=== PATIENT | female | born 1955 | race Caucasian/White ===

== ENCOUNTER → 2016-08-21 | Outpatient (CLI) | payer OTHER | LOC: FIMAGING 07:42 | PROVIDERS: ATTEND Nurse Practitioner Adult Health | DX: M25.511 Pain in right shoulder (principal); M75.101 Unspecified rotator cuff tear or rupture of right shoulder, not specified as traumatic; M75.51 Bursitis of right shoulder; M75.21 Bicipital tendinitis, right shoulder; M25.711 Osteophyte, right shoulder ==

== ENCOUNTER → 2017-01-27 | Outpatient (CLI) | payer OTHER | LOC: FIMAGING 16:04 | PROVIDERS: ATTEND Physician Assistant | DX: Z12.31 Encounter for screening mammogram for malignant neoplasm of breast (principal) | CPT/HCPCS: G0202 ==

== ENCOUNTER 2018-07-06 23:22 | Inpatient (IN) | payer OTHER ==
[2018-07-06] MEDS ORDERED: NS 1,000 ML IV ONE (23:44)
[2018-07-06 23:50] LABS: PLATELET COUNT 199 10^3/uL (150-400)
--- NOTE | 2018-07-06 23:51 | EDPHY ---
General Time Seen by Provider: 07/06/18 23:32 Narrative: CLINICAL IMPRESSION: Acute appendicitis ASSESSMENT/PLAN: 63-year-old female presents to the emergency department with 2 days of lower abdominal pain associated with nausea, 1 episode of nonbloody vomiting, no diarrhea, and subjective low-grade fevers. Patient arrives tachycardic, hypertensive, afebrile, nonseptic and nontoxic appearing. She has right greater than left lower abdominal discomfort with guarding but no focal peritoneal findings. Labs consistent with leukocytosis of 13 with left shift, no significant electrolyte imbalance or metabolic disturbance. CT confirms large 2 cm appendicolith with surrounding appendicitis and fat stranding. Results discussed with Dr. Saucedo from general surgery who will see the patient and take her to the OR later on this morning. Patient will be kept NPO. IV Flagyl and Rocephin initiated in the ED. IV analgesics provided and patient is comfortable at this time. Case discussed with Dr. Chapman. Stabilized for transfer to the floor pending surgery. DIFFERENTIAL DX: Abdominal pain includes but not limited to urinary tract infection, pyelonephritis,ovarian torsion, ovarian cyst, uterine fibroids, acute appendicitis, acute diverticulitis, small-bowel obstruction, constipation ED PROCEDURES: See lab and/or imaging results below ED COURSE: 1:25 a.m.: Dr. Mcknight has read CT scan as positive for acute appendicitis with a large appendicolith measuring 2 cm. Results discussed with the patient. She last had yogurt at 6:45 a.m. Yesterday evening. She will be kept NPO. Antibiotics ordered, case discussed with Dr. Saucedo. Patient will be admitted to the floor with plan for OR later this morning. CHIEF COMPLAINT: Abdominal pain nausea and vomiting HPI: 63-year-old female presents to the emergency department with 2 days of lower abdominal pain associated with 1 episode of bilious, nonbloody vomiting today. No associated diarrhea. She had to formed stools yesterday and today with no visible blood or melena. She reports no prior abdominal surgery. No associated fever or chills although she reports she has been running 99.6 which is"high for her". No new foods, travel, or recent antibiotics. No reported chronic abdominal complaints. No abnormal vaginal bleeding, dysuria, urgency or flank pain. She has not taken anything for her pain which she reports today is worse than it was yesterday at an 8/10. She is declining analgesics and antiemetics at this time. PAST MEDICAL HISTORY: None reported See nurse/triage notes for additional history if applicable Pertinent Past Surgical History: None reported Family History: Noncontributory Social History: Works as a home health nurse at [employer] REVIEW OF SYSTEMS: All other systems negative Constitutional: No fever, no chills, positive appetite change. ENT: No sore throat, congestion, ear pain. Cardiovascular: No chest pain, no palpitations. Respiratory: No cough, no shortness of breath. Gastrointestinal: Positive for abdominal pain and vomiting, no diarrhea. Genitourinary: No hematuria, dysuria, flank pain, pelvic pain Musculoskeletal: No back pain, joint swelling, joint pain, myalgias. Skin: No rashes, color change. PHYSICAL EXAM: General Appearance: Alert, oriented, appropriate, cooperative, NAD, well hydrated, non-toxic appearing, tachycardic at 112, hypertensive at 143 Systolic , laying on her back but appears uncomfortable, no hypoxia. HEENT: [Dry mucous membranes Respiratory: There are no retractions, lungs are clear to auscultation. Cardiac: Regular rate and rhythm, no murmurs or gallops. Gastrointestinal: Abdomen is soft, tender bilateral lower quadrants although worse in the right with guarding, bowel sounds normal, no masses/hernia, no rigidity Neurological: [ Alert and oriented x 3 Skin: Warm, dry, no rashes, no nodules on palpation. MEDICAL DECISION MAKING: Patient was seen independently. Secondary supervising physician at time of evaluation was Dr. Chapman. Diagnosis: Acute appendicitis. New, requires workup Summary: See Assessment and Plan for summary of ED visit Clinical lab tests: ordered / reviewed. Independent visualization of images, tracing, or specimens: Yes. Decision to obtain medical records or history from someone other than the patient: No Review / Summarize previous medical records: None available Discussed patient with another provider: Dr. Chapman, Dr. Cottrell, Dr. Mcknight Patient Progress: Stabilized. - History Smoking Status: Never smoked - Objective Vital Signs: Initial Vital Signs Temperature (C) 37.3 C 07/06/18 23:23 Heart Rate 112 H 07/06/18 23:23 Respiratory Rate 17 07/06/18 23:23 Blood Pressure 143/79 H 07/06/18 23:23 O2 Sat (%) 93 07/06/18 23:23 O2 Delivery Mode Room Air O2 (L/minute) 3 Allergies/Adverse Reactions: No Known Allergies Allergy (Unverified 07/06/18 23:23) Home Medications: Medication Instructions Recorded Celexa 07/10/10 ESTRADIOL 07/10/10 Lipitor 10 mg 07/10/10 PROGESTERONE 07/10/10 Wellbutrin 07/10/10 Albuterol [Proventil Neb] 3 ml IH Q4-6PRN PRN #15 deyvial 12/30/12 Laboratory Results: Laboratory Results 07/06/18 23:40 07/06/18 23:40 07/06/18 07/06/18 23:40 23:40 WBC 13.21 10^3/uL H 10^3/uL (3.80-9.50) RBC 4.53 10^6/uL 10^6/uL (4.18-5.33) Hgb 13.6 g/dL g/dL (12.6-16.3) Hct 40.1 % % (38.0-47.0) MCV 88.5 fL fL (81.5-99.8) MCH 30.0 pg pg (27.9-34.1) MCHC 33.9 g/dL g/dL (32.4-36.7) RDW 12.1 % % (11.5-15.2) Plt Count 199 10^3/uL 10^3/uL (150-400) MPV 9.8 fL fL (8.7-11.7) Neut % (Auto) 81.5 % H % (39.3-74.2) Lymph % (Auto) 8.6 % L % (15.0-45.0) Schley % (Auto) 9.4 % % (4.5-13.0) Eos % (Auto) 0.0 % L % (0.6-7.6) Baso % (Auto) 0.2 % L % (0.3-1.7) Nucleat RBC Rel Count 0.0 % % (0.0-0.2) Absolute Neuts (auto) 10.77 10^3/uL H 10^3/uL (1.70-6.50) Absolute Lymphs (auto) 1.13 10^3/uL 10^3/uL (1.00-3.00) Absolute Monos (auto) 1.24 10^3/uL H 10^3/uL (0.30-0.80) Absolute Eos (auto) 0.00 10^3/uL L 10^3/uL (0.03-0.40) Absolute Basos (auto) 0.03 10^3/uL 10^3/uL (0.02-0.10) Absolute Nucleated RBC 0.00 10^3/uL 10^3/uL (0-0.01) Immature Gran % 0.3 % % (0.0-1.1) Immature Gran # 0.04 10^3/uL 10^3/uL (0.00-0.10) Sodium 135 mEq/L mEq/L (135-145) Potassium 4.2 mEq/L mEq/L (3.5-5.2) Chloride 103 mEq/L mEq/L (97-110) Carbon Dioxide 22 mEq/l mEq/l (22-31) Anion Gap 10 mEq/L mEq/L (6-14) BUN 17 mg/dL mg/dL (7-23) Creatinine 0.7 mg/dL mg/dL (0.6-1.0) Estimated GFR > 60 Glucose 172 mg/dL H mg/dL (70-100) Calcium 9.4 mg/dL mg/dL (8.5-10.4) Specimen Hemolysis 118 Medications Given: Discontinued Medications Fentanyl (Sublimaze) 50 mcg IVP EDNOW ONE Stop: 07/07/18 00:27 Last Admin: 07/07/18 00:27 Dose: 50 mcg Sodium Chloride (Ns) 1,000 mls @ 0 mls/hr IV EDNOW ONE; Wide Open PRN Reason: Protocol Stop: 07/06/18 23:45 Last Admin: 07/06/18 23:50 Dose: 1,000 mls Departure - Departure Disposition: [facility] Inpatient Acute Clinical Impression: Acute appendicitis Qualifiers: Acute appendicitis type: unspecified acute appendicitis type Qualified Code(s) : K35.80 - Unspecified acute appendicitis Condition: Fair Referrals: Emily Jeter MD [Primary Care Provider] - As per Instructions
[2018-07-07] MEDS ORDERED: IOPAMIDOL (ISOVUE-300) 100 ML BTL ONE (00:16)
[2018-07-07] MEDS ORDERED: fentaNYL 100 MCG/2 ML INJ IVP ONE ×2 (00:26→01:30)
[2018-07-07] MEDS ORDERED: fentaNYL 100 MCG/2 ML INJ ONE ×2 (00:27→05:56)
[2018-07-07] MEDS ORDERED: NS 1,000 ML IV ONE (01:30)
--- NOTE | 2018-07-07 03:30 | PDCONSULT ---
Certified Phlebotomist Note: Consult at the request of Dr. Chapman emergency room for abdominal pain. 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 She reports feeling unwell not being able to sleep the night before follow-up by minimal oral intake associated with Nausea/vomiting bilious 10 pm. Fentanyl helped. movement increased pain. Denies any fevers or chills no sick contacts. No previous episodes. History significant for constipation, reflux/ dyspepsia and borderline diabetes PMH: GERD, Borderline DM, constipation Past surgical history tonsillectomy at age 5 Medication at home: Prilosec p.r.n. No known drug allergies Review of systems significant for chronic constipation in current abdominal pain constipation has been better over the last year. All others reviewed and are negative Family history significant for diabetes in her grandparents, lung cancer in her mother from smoking, COPD in her father from smoking Social history: Denies smoking or drug use. Occasional alcohol 1 or 2 drinks per week Temp Pulse Resp BP Pulse Ox 37.3 C 96 16 136/87 H 100 07/06/18 23:23 07/07/18 01:54 07/07/18 01:54 07/07/18 01:54 07/07/18 01:54 O2 (L/minute) 2 Alert oriented minimal distress Sclerae anicteric Oropharynx slightly dry. Dentition intact No JVD trachea midline no thyromegaly No cervical or supraclavicular adenopathy Regular rate and rhythm mildly tachycardic Clear to auscultation bilaterally Abdomen soft a reducible umbilical hernia. Tender in the right lower quadrant positive Rovsing sign. Normal skin turgor and tone Extremities without edema. 2+ over 2+ central and peripheral pulses Normal mood and affect Nonfocal neurologic exam 07/06/18 23:40 07/06/18 23:40 CT scan of the abdomen pelvis is personally reviewed on [facility] PACS system with the patient. Signs of acute appendicitis with appendicoliths are noted. There is mild separation of fluid in the right lower quadrant tracking to the pelvis. There is a small lipoma within the uterus. No other pathology is noted. Impression: Acute appendicitis Leukocytosis Hyperglycemia Plan: Laparoscopic appendectomy. The risks benefits and alternatives to surgery have been outlined clearly with the patient. Risks include but are not limited to bleeding, infection, inability to perform the surgery laparoscopic leak, conversion to open, injury to surrounding structures that could require further intervention. After confirmation of verbal understanding consent was obtained. She is receiving antibiotics currently. Which will help with her leukocytosis. Hyperglycemia is likely due to her infection, inflammation and the fact she has borderline diabetes. This will be followed up as an outpatient with her primary care doctor. This is been discussed in detail with the patient. No current treatment will be given for this problem at this time. Anticipate 1-2 day stay in the hospital. She will be kept longer if she has signs of perforation. This would be for treatment of infection with antibiotics IV.
[2018-07-07] MEDS ORDERED: ONDANSETRON 4 MG/2 ML VIAL IVP PRN (03:34)
[2018-07-07] MEDS ORDERED: TEMAZEPAM 15 MG CAP PO PRN (03:34)
[2018-07-07] MEDS ORDERED: METOCLOPRAMIDE 10 MG/2 ML VIAL IVP PRN (03:34)
[2018-07-07] MEDS ORDERED: fentaNYL 100 MCG/2 ML INJ IVP PRN ×2 (03:35→07:06)
[2018-07-07] MEDS ORDERED: oxyCODONE IR 5 MG TAB PO PRN (03:36)
[2018-07-07] MEDS: KETOROLAC 15 MG/1 ML SDV IVP SCH ×4 (05:18→23:09)
[2018-07-07] MEDS ORDERED: BUPIVACAINE 0.5% 30 ML SDV ONE (05:33)
[2018-07-07] MEDS ORDERED: LIDOCAINE 1% 300 MG/30 ML SDV ONE (05:33)
--- NOTE | 2018-07-07 05:52 | PDANEPAE ---
ANE Past Medical History - Pulmonary History Hx Oxygen in Use at Home: No Hx Sleep Apnea: No Sleep Apnea Screening Result - Last Documented: Negative - Endocrine History Hx Diabetes: No - Chronic Pain History Chronic Pain: No ANE Review of Systems Review of Systems: ANE Patient History - Allergies Allergies/Adverse Reactions: No Known Allergies Allergy (Unverified 07/06/18 23:23) - Home Medications Home Medications: Celexa 07/10/10 [Last Taken Unknown] ESTRADIOL 07/10/10 [Last Taken Unknown] Lipitor 10 mg 07/10/10 [Last Taken Unknown] PROGESTERONE 07/10/10 [Last Taken Unknown] Wellbutrin 07/10/10 [Last Taken Unknown] - NPO status NPO Since - Liquids (Date): 07/06/18 NPO Since - Liquids (Time): 22:00 NPO Since - Solids (Date): 07/06/18 NPO Since - Solids (Time): 22:00 - Smoking Hx Smoking Status: Never smoked ANNA Labs/Vital Signs - Labs Result Diagrams: 07/06/18 23:40 07/06/18 23:40 - Vital Signs Blood Pressure: 125/80 Heart Rate: 104 Respiratory Rate: 16 O2 Sat (%): 99 Height: 165.1 cm Weight: 81.64 kg ANE Physical Exam - Airway Mallampati Score: Class 2 - ASA Status ASA Status: II, E ANE Anesthesia Plan Anesthesia Plan: general endotracheal anesthesia
[2018-07-07] MEDS ORDERED: MIDAZOLAM 2 MG/2 ML VIAL ONE (05:55)
[2018-07-07] MEDS ORDERED: PROPOFOL 200 MG/20 ML VIAL ONE (05:56)
[2018-07-07] MEDS ORDERED: METOCLOPRAMIDE 10 MG/2 ML VIAL ONE (06:18)
[2018-07-07] MEDS ORDERED: ROCURONIUM 50 MG/5 ML VIAL ONE (06:18)
[2018-07-07] MEDS ORDERED: ONDANSETRON 4 MG/2 ML VIAL ONE (06:19)
[2018-07-07] MEDS ORDERED: SUGAMMADEX SODIUM 200 MG/2 ML VIAL IVP ONE (06:46)
[2018-07-07] MEDS ORDERED: HYDROmorphONE/DILAUDID 2 MG/ML INJ IVP PRN (07:06)
[2018-07-07] MEDS ORDERED: PHENYLEPHRINE HCL 100 MCG/ML SYR IVP PRN (07:06)
[2018-07-07] MEDS ORDERED: LR 500 ML IV PRN (07:06)
[2018-07-07] MEDS ORDERED: NALOXONE HCL 0.4 MG/ML INJ IVP PRN (07:06)
--- NOTE | 2018-07-07 07:07 | POSTANESTH ---
Post Anesthetic Evaluation Cardiovascular Status: Normal, Stable Respiratory Status: Normal, Stable Level of Consciousness/Mental Status: Can Participate in Eval Pain Control: Adequate, Prn Tx Ordered Nausea/Vomiting Control: Adequate, Prn Tx Ordered Complications Possibly Related to Anesthesia: None Noted
--- NOTE | 2018-07-07 07:18 | POSTOPPROG ---
Post Op Note Date of Operation: 07/07/18 Surgeon: Ángel Saucedo [place] Layer: none Anesthesiologist: Karlie Salcido Anesthesia: GET(General Endotracheal) Pre-op Diagnosis: Acute appendicitis Post-op Diagnosis: Perforated appendicitis Procedure: Laparoscopic Appendectomy Findings: perforated appendicitis with abscess Inf/Abcess present in the surg proc area at time of surgery?: Yes Depth: Organ Space EBL: Minimal Complications: none Specimen(s): appendix
--- NOTE | 2018-07-07 09:59 | PDMN ---
Medical Necessity Medical necessity: MCG: S185 appendectomy with abscess or peritonitis by Lap 2 days: OP: Lap appy with perf. and abscess
[2018-07-07] MEDS: NS W/ 20 KCl/L 1,000 ML IV SCH (14:30)
--- NOTE | 2018-07-07 16:43 | ASMTCMCOM ---
CM Note CM Note Notes: Pt admitted for perforated appendicitis and had appendectomy this morning. 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 Pt is single and lives independently [place]. Pt has requested work excuse letter from CM. No therapies have been ordered. Spoke with pt's RN who anticipates pt will discharge independently. CM to follow. D/C Plan Independent Date Signed: 07/07/2018 04:42 PM Electronically Signed By:Korin Young
[2018-07-08] MEDS: NS W/ 20 KCl/L 1,000 ML IV SCH ×2 (01:16→13:19)
[2018-07-08] MEDS: KETOROLAC 15 MG/1 ML SDV IVP SCH ×4 (05:19→23:12)
[2018-07-08] MEDS ORDERED: PANTOPRAZOLE SODIUM 40 MG TAB PO PRN (09:00)
[2018-07-08] MEDS: ACETAMINOPHEN 325 MG TAB PO PRN ×2 (11:06→21:39)
--- NOTE | 2018-07-08 12:08 | SOAPPROG ---
SOAP Progress Note Assessment/Plan: Assessment/Plan: POD#1 s/p lap appy for perforated appendicitis OOB to chair Tolerating diet Pain LLQ RRR CTA Abd incisions c/d, no peritoneal signs Doing well Voided as expected Still tachycardic cont IVF D/C in next 24 hrs on augmentin 07/08/18 12:05 Objective: Vital Signs Temp Pulse Resp BP Pulse Ox 37.2 C 97 14 123/65 H 87 L 07/08/18 11:08 07/08/18 08:00 07/08/18 08:00 07/08/18 08:00 07/08/18 08:00 07/07/18 07/08/18 07/09/18 05:59 05:59 05:59 Intake Total 600 4811 Output Total 1455 700 Balance 600 2565 -490 ICD10 Worksheet Patient Problems: Problems Problem Status Onset Acute appendicitis Acute
--- NOTE | 2018-07-08 12:13 | SUROPNOTE ---
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 Clinical and imaging studies suggested perforated appendicitis. She was taken to the operating room for urgent appendectomy. Preop diagnosis: Acute appendicitis Postop diagnosis: Perforated appendicitis with fecal peritonitis Procedure: Laparoscopic appendectomy Surgeon: Lewis Anesthesiology: Dr. Salcido general endotracheal anesthesia Findings perforated appendicitis with fecal peritonitis Specimen appendix to permanent pathology EBL: Less than 10 mL Details of procedure: The patient was brought to the operating room after induction of endotracheal anesthesia in a supine position her abdomen was prepped with chlorhexidine and draped sterilely time-out procedure was then performed according to institutional standards. Local anesthetic was infused in the skin and subcutaneous tissues of the trocar sites. Open supraumbilical trocar placement was done in the standard fashion the abdomen was insufflated to 15 torr with carbon dioxide. The abdomen was inspected the only pathology noted was or perforated appendix which was walled off behind small-bowel. General dissection was performed a small mass was noted within the uterine parenchyma as seen on CT scan this was not biopsied. Purulent fluid was noted in the pouch of Rodrigo and this was aspirated and then irrigated till clear. The appendix was then brought to field dissection, the mesoappendix was controlled with bipolar LigaSure energy. The base of the appendix was divided flush with the cecum using an Endo-MATTIE stapler. The perforated area of the appendix and a fecalith were identified and then placed into an endo-pouch and brought out through the umbilical incision. The abdomen was irrigated and aspirated. Needle instrument sponge counts were verified to be correct. Fascia was reapproximated using 0 Vicryl at the level of the umbilicus and all ports were closed using 4 Monocryl. Dermabond was applied. The patient was awakened extubated taken to recovery room stable condition no immediate complications.
[2018-07-09] MEDS: NS W/ 20 KCl/L 1,000 ML IV SCH (04:12)
[2018-07-09] MEDS: ACETAMINOPHEN 325 MG TAB PO PRN (04:15)
[2018-07-09] MEDS: KETOROLAC 15 MG/1 ML SDV IVP SCH (05:32)
[2018-07-09 07:16] VITALS: BP 124/78
--- NOTE | 2018-07-09 10:41 | ASMTLACE ---
LACE Length of stay for Answers: 3 days current admission Acuity / Level of Answers: Yes Care: Did the patient have an inpatient admission? Comorbidities - select Answers: Diabetes (uncontrolled or all that apply controlled) Other Notes: GERD # of Emergency department Answers: 1-2 visits in the last 6 months Score: 9 Date Signed: 07/09/2018 10:41 AM Electronically Signed By:KWAME Hernández
--- NOTE | 2018-07-09 10:41 | ASMTCMCOM ---
CM Note CM Note Notes: CM discussed with MAIRA Duenas. Pt is being d/c'd today. CM provided pt w/ a work excuse letter. Pt does not have any d/c needs at this time. CM available for changes. Plan: Independent Date Signed: 07/09/2018 10:40 AM Electronically Signed By:KWAME Hernández
--- NOTE | 2018-07-09 13:28 | PDDCSUM ---
Discharge Summary Discharge Summary: Date of admission: 07/07/2018 Date of discharge: 07/09/2018 Principal diagnosis perforated appendicitis. Secondary diagnosis: Diabetes type 2, gastroesophageal reflux disorder. History of present illness: This is a 63-year-old woman with 2 days of worsening abdominal pain who presented to the emergency room for evaluation. Found to have leukocytosis and perforated appendicitis. Principal procedure: Laparoscopic appendectomy Hospital course: The patient was taken frontal urgent laparoscopic appendectomy on the day of admission. Perioperative ceftriaxone and Flagyl were given and continued postoperatively as she was mildly hypotensive. She had blood sugar of 175 which was treated expectantly. She defervesced white blood cell count was not recheck but clinical signs of infection were gone on the time of discharge. She was tolerating a diet had no fevers vitals were normalized prior to discharge. She was back to her baseline cardiopulmonary status. All questions were addressed. The patient was instructed to call with any concerns regarding her surgery such as but not limited to bleeding from the incision sites, increasing malaise, fever, inability to tolerate food or pain not controlled by medication. 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 This will be followed up as an outpatient. Medications on discharge: Augmentin 875 mg twice daily x5 days Oxycodone 1-2 tabs p.o. Q 4-6 hours p.r.n. 14 tablets were given Ibuprofen [Motrin (*)] 200 - 400 mg PO TID PRN 07/07/18 [Last Taken Unknown] Multivitamins [Multivitamin (*)] 1 each PO DAILY 07/07/18 [Last Taken Unknown] Omeprazole 20 mg PO DAILY PRN 07/07/18 [Last Taken Unknown] Vit C/Dl-E AC/Lut/Copper/Znox [Preservision Softgel] 1 each PO BID 07/07/18 [ Last Taken Unknown] Vitamin B Complex [Vitamin B Complex (OTC)] 1 each PO DAILY 07/07/18 [Last Taken Unknown] Follow-up postoperatively will be with Dr. Saucedo at [facility] on 2018.
== END 2018-07-09 11:49 | disposition home or self-care (01) | DRG 340 ==
LOC: F3E 07-07 02:07
PROVIDERS: ADMIT Surgery; ATTEND Surgery
PROC: 0DTJ4ZZ Resection of Appendix, Percutaneous Endoscopic Approach (ICD-10-PCS; principal; 2018-07-07 06:00)
DX: K35.32 Acute appendicitis with perforation, localized peritonitis, and gangrene, without abscess (principal); E11.9 Type 2 diabetes mellitus without complications; K21.9 Gastro-esophageal reflux disease without esophagitis
CPT/HCPCS: 96365; J0696; J1885; J2250; J2405; J2704; J2765; J3010; Q9967